=== PATIENT | female | born 1995 | race African-American/Black ===

== ENCOUNTER 2017-08-01 19:50 | Emergency (ER) | payer OTHER ==
[2017-08-01 20:06] VITALS: BP 122/66; PULSE 98; TEMP 98
--- NOTE | 2017-08-01 20:07 | PDOC ---
Rapid Medical Evaluation Time Seen by Provider: 08/01/17 20:02 Medical Evaluation: Allergies Allergy/AdvReac Type Severity Reaction Status Date / Time No Known Allergies Allergy Verified 07/17/15 11:23 08/01/17 20:04 I have performed a brief in-person evaluation of this patient. The patient presents with a chief complaint of: vomiting Pertinent physical exam findings: appears well. no distress I have ordered the following: urine , ua, cbc, cmp The patient will proceed to the ED for further evaluation. Discharge Disposition - Diagnosis Vomiting Qualifiers: Vomiting type: unspecified Vomiting Intractability: unspecified Nausea presence : unspecified Qualified Code(s): R11.10 - Vomiting, unspecified - Referrals - Patient Instructions - Post Discharge Activity
[2017-08-01 20:19] LABS: MCH 30.8 pg (25.7-33.7); MCHC 33.2 g/dl (32.0-36.0); MEAN CELL VOLUME 92.8 fl (80-96); MEAN PLT VOLUME 7.2 fl (7.5-11.1); PLATELET COUNT 250 K/MM3 (134-434); RDW 12.3 % (11.6-15.6); WHITE BLOOD COUNT 13.4 K/mm3 (4.0-10.0)
[2017-08-01 20:25] LABS: URINE APPEARANCE SLCLOUDY; URINE BILIRUBIN NEGATIVE (NEGATIVE); URINE BLOOD NEGATIVE (NEGATIVE); URINE COLOR DKYELLOW; URINE GLUCOSE (UA) NEGATIVE (NEGATIVE); URINE KETONE TRACE (NEGATIVE); URINE NITRITE NEGATIVE (NEGATIVE)
[2017-08-01 20:30] LABS: URINE PROTEIN 1+ (NEGATIVE)
[2017-08-01 20:32] LABS: URINE MUCUS MANY; URINE RBC 5 /hpf (0-3); URINE WBC 2 /hpf (3-5)
--- NOTE | 2017-08-01 20:43 | PDOC ---
Attending Attestation - Resident Resident Name: Elías Arana - ED Attending Attestation I have performed the following: I have examined & evaluated the patient, The case was reviewed & discussed with the resident, I agree w/resident's findings & plan, Exceptions are as noted - HPI HPI: 08/01/17 20:42 N/V/URINARY FREQUENCY ALL DAY - Physicial Exam PE: 08/01/17 20:42 VSS/NAD - Medical Decision Making 08/01/17 20:43 I, Dr. Antoine Obrien, attest that this document has been prepared under my direction and personally reviewed by me in its entirety. I further attest, that it accurately reflects all work, treatment, procedures and medical decision -making performed by me.
[2017-08-01] MEDS ORDERED: SODIUM CHLORIDE 1,000 ML IV STA ×2 (20:55→21:55)
[2017-08-01] MEDS ORDERED: ONDANSETRON 4 MG/2 ML VIAL IVPUSH ONE (20:55)
[2017-08-01] MEDS ORDERED: FAMOTIDINE 20 MG/50 ML IVPB 20 MG/50 ML MG IVPB ONE ×2 (20:55→21:37)
[2017-08-01 20:57] LABS: ALBUMIN 4.2 g/dl (3.4-5.0); ALK PHOS 95 U/L (45-117); ANION GAP 7 (8-16); BILIRUBIN,TOTAL 0.9 mg/dL (0.2-1.0); CALCIUM 8.8 mg/dL (8.5-10.1); CO2 29 mmol/L (21-32); CREATININE 1.1 mg/dL (0.55-1.02); GLUCOSE,RANDOM 101 mg/dL (74-106); SGOT/AST 10 U/L (15-37); SGPT/ALT 20 U/L (12-78); TOT PROT 8.2 g/dl (6.4-8.2)
--- NOTE | 2017-08-01 21:02 | PDOC ---
History of Present Illness - General Chief Complaint: Nausea/Vomiting Stated Complaint: NAUSEA/VOMITING Time Seen by Provider: 08/01/17 20:02 - History of Present Illness Initial Comments: 08/01/17 20:55 22 yo F with no significant pmh who presents with diffuse abdominal pain. Pt. reports diffuse, crampy abdominal pain and multiple episodes of non billiary, non bloody emesis. States that pain is stable and non remitting with absent radiation to flank/back. Endorses decreased appetite with absent postpranidal pain. No diarrhea, or constipation. food exacerbates emesis. Denies N/V, fevers/ chills, chest pain, SOB, lightheadedness, dysuria, hematuria, vaginal bleeding, or pelvic pain. Denies h/o . Alcohol use 4-8 oz per 2 weeks. Denies THC use. Reports h/o similar symptoms in past. H/o L sided ovarian cyst uncomplicated. Past History - Past Medical History Allergies/Adverse Reactions: Allergies Allergy/AdvReac Type Severity Reaction Status Date / Time No Known Allergies Allergy Verified 08/01/17 20:06 Home Medications: Ambulatory Orders NK [No Known Home Medication] 08/01/17 COPD: No Other medical history: denies - Family Disease History Family Disease History: CA: Grandparents - Suicide/Smoking/Psychosocial Hx Smoking History: Never smoked Have you smoked in the past 12 months: No Number of Cigarettes Smoked Daily: 1 Information on smoking cessation initiated: No Hx Alcohol Use: No Drug/Substance Use Hx: No Substance Use Type: None Review of Systems - Review of Systems Comments:: 08/01/17 21:02 GENERAL/CONSTITUTIONAL: No fever or chills. No weakness. HEAD, EYES, EARS, NOSE AND THROAT: No change in vision. No ear pain or discharge. No sore throat.- CARDIOVASCULAR: No chest pain or shortness of breath RESPIRATORY: No cough, wheezing, or hemoptysis. GASTROINTESTINAL: + Nausea, vomiting,and abdominal pain. No diarrhea or constipation. GENITOURINARY: No dysuria, frequency, or change in urination. MUSCULOSKELETAL: No joint or muscle swelling or pain. No neck or back pain. SKIN: No rash NEUROLOGIC: No headache, vertigo, loss of consciousness, or change in strength/ sensation. ENDOCRINE: No increased thirst. No abnormal weight change HEMATOLOGIC/LYMPHATIC: No anemia, easy bleeding, or history of blood clots. ALLERGIC/IMMUNOLOGIC: No hives or skin allergy. *Physical Exam - Vital Signs Last Vital Signs Temp Pulse Resp BP Pulse Ox 98 F 98 H 20 122/66 98 08/01/17 20:04 08/01/17 20:04 08/01/17 20:04 08/01/17 20:04 08/01/17 20:04 - Physical Exam Comments: 08/01/17 21:07 GENERAL: Awake, alert, and fully oriented, in no acute distress HEAD: No signs of trauma, normocephalic, atraumatic EYES: PERRLA, EOMI, sclera anicteric, conjunctiva clear ENT: Auricles normal inspection, hearing grossly normal, nares patent, oropharynx clear without exudates. Dry mucous membrane. NECK: Normal ROM, supple, no lymphadenopathy, JVD, or masses LUNGS: No distress, speaks full sentences, clear to auscultation bilaterally HEART: Regular rate and rhythm, normal S1 and S2, no murmurs, rubs or gallops, peripheral pulses normal and equal bilaterally. ABDOMEN: Soft,diffusely ttp, normoactive bowel sounds. No guarding, no rebound , no rigidity. No masses. Neg CVA ttp. No suprpapubic ttp. No other complaints. EXTREMITIES : Normal inspection, Normal range of motion, no edema. No clubbing or cyanosis. SKIN: Warm, Dry, normal turgor, no rashes or lesions noted. ED Treatment Course - LABORATORY CBC & Chemistry Diagram: 08/01/17 20:10 08/01/17 20:10 - ADDITIONAL ORDERS Additional order review: Laboratory Results 08/01/17 20:10 Urine Color Dkyellow Urine Appearance Slcloudy Urine pH 5.0 Ur Specific Chuckey 1.024 Urine Protein 1+ H Urine Glucose (UA) Negative Urine Ketones Trace H Urine Blood Negative Urine Nitrite Negative Urine Bilirubin Negative Urine Urobilinogen 2.0 H Ur Epithelial Cells Few Urine Mucus Many Urine HCG, Qual Negative 08/01/17 20:10 RBC 4.47 MCV 92.8 MCHC 33.2 RDW 12.3 MPV 7.2 L Neutrophils % No Result Required. Lymphocytes % No Result Required. Medical Decision Making - Medical Decision Making 08/01/17 21:10 22 yo F with no significant pmh who presents with one week of diffuse, crampy abdominal pain and multiple episodes of non billiary, non bloody emesis. States that pain is stable and non remitting with absent radiation to flank/ back. Endorses decreased appetite with absent postpranidal pain. No diarrhea, or constipation. Denies fevers/chills, chest pain, SOB, lightheadedness, dysuria , hematuria, vaginal bleeding, or pelvic pain. Phyiscal exam with diffuse ttp , and hemodynamically stable. Denies h/o . Alcohol use 4-8 oz per 2 weeks. Denies THC use. Reports h/o similar symptoms in past. DDx: Colitis, gastritis ( viral) ED Course: CBC, CMP, Lipase, UA NS 1 L, Pepcid, Zofran 08/01/17 21:12 CT AP ABDOMEN & PELVIS 08/01/17 23:52 CT AP: 2.4 cm R Ovarian cyst with free fluid in rt post adenexa. Previous transvaginal U/S revealed R ovarian cyst of 1.9 cm (2012) 08/01/17 23:59 Patient is stable and ready for discharge with return precautions. *DC/Admit/Observation/Transfer Diagnosis at time of Disposition: Vomiting Qualifiers: Vomiting type: unspecified Vomiting Intractability: unspecified Nausea presence : unspecified Qualified Code(s): R11.10 - Vomiting, unspecified - Discharge Dispostion Disposition: HOME Condition at time of disposition: Stable Admit: No - Referrals Referrals: Samantha Gutierrez MD [Primary Care Provider] - - Patient Instructions Additional Instructions: Please return to the emergency department with any new or worsening symptoms or concerns . Please follow up with primary care within the next 1 week. - Post Discharge Activity - Attestations Physician Attestion: 08/01/17 23:54 I attest to the information provided in this note.
[2017-08-01 21:35] LABS: PLATELET ESTIMATE ADEQUATE; TOTAL CELLS COUNTED 100
[2017-08-01] MEDS ORDERED: ONDANSETRON 4 MG/2 ML VIAL ONE (21:36)
[2017-08-01 22:13] LABS: URINE LEUK ESTERASE Negative (NEGATIVE)
[2017-08-01 22:27] VITALS: BMI 28.8
== END 2017-08-02 00:16 | disposition home or self-care (01) ==
LOC: JER 19:50
PROC: 3E0337Z Introduction of Electrolytic and Water Balance Substance into Peripheral Vein, Percutaneous Approach (ICD-10-PCS; principal; 2017-08-01)
PROC: 3E033GC Introduction of Other Therapeutic Substance into Peripheral Vein, Percutaneous Approach (ICD-10-PCS; 2017-08-01)
PROC: 3E033GC Introduction of Other Therapeutic Substance into Peripheral Vein, Percutaneous Approach (ICD-10-PCS; 2017-08-01)
DX: R11.10 Vomiting, unspecified (principal); N83.201 Unspecified ovarian cyst, right side
CPT/HCPCS: 36415; 74177-TC; 80053; 81003; 81015; 83690; 84703; 85025; 87491; 87591; 99282-25

== ENCOUNTER 2017-09-25 09:00 | Emergency (ER) | payer OTHER ==
[2017-09-25 09:04] VITALS: BP 139/62; PULSE 86; TEMP 98.3; BMI 29.0
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
== END 2017-09-25 12:16 | disposition home or self-care (01) ==
LOC: JERFT 09:00
DX: S49.81XA Other specified injuries of right shoulder and upper arm, initial encounter (principal); V47.5XXA Car driver injured in collision with fixed or stationary object in traffic accident, initial encounter; Y92.414 Local residential or business street as the place of occurrence of the external cause; Y93.89 Activity, other specified; Y99.8 Other external cause status
CPT/HCPCS: 73030-TC-RT; 73060-TC-RT; 73090-TC-RT; 73110-TC-RT; 73130-TC-RT; 84703; 99281-25

== ENCOUNTER 2018-03-06 22:49 | Emergency (ER) | payer OTHER ==
[2018-03-06 22:59] VITALS: BP 118/76; PULSE 57; TEMP 97.9; BMI 28.1
== END 2018-03-07 00:58 | disposition left against medical advice (07) ==
LOC: JER 22:49
DX: Z53.21 Procedure and treatment not carried out due to patient leaving prior to being seen by health care provider (principal)
CPT/HCPCS: 99281-25

== ENCOUNTER 2022-03-28 17:07 | Emergency (ER) | payer OTHER ==
[2022-03-28 17:12] VITALS: BP 123/77; PULSE 95; TEMP 98.3; BMI 30.2
[2022-03-28] MEDS ORDERED: FAMOTIDINE 20 MG TABLET PO ONE (17:56)
[2022-03-28] MEDS ORDERED: predniSONE 20 MG TABLET (UD) PO ONE (17:56)
[2022-03-28] MEDS ORDERED: diphenhydrAMINE HCL 25 MG CAPSULE (FP) PO ONE ×3 (17:56→18:04)
[2022-03-28] MEDS ORDERED: predniSONE 20 MG TABLET (UD) ONE (18:01)
[2022-03-28] MEDS ORDERED: FAMOTIDINE 20 MG TABLET ONE (18:01)
== END 2022-03-28 23:45 | disposition home or self-care (01) ==
LOC: JER 17:07
DX: T78.3XXA Angioneurotic edema, initial encounter (principal)
CPT/HCPCS: 99284-25

== ENCOUNTER 2024-04-15 20:43 | Emergency (ER) | payer OTHER ==
[2024-04-15 20:56] VITALS: BP 111/70; PULSE 70; RESP 18; TEMP 98.3; BMI 30.2
[2024-04-15] MEDS ORDERED: BACITRACIN ZINC 15 GM TUBE TOPICAL OINTMENT ONE (21:40)
[2024-04-15] MEDS: BACITRACIN ZINC 15 GM TUBE TOPICAL OINTMENT TP ONE (21:41)
== END 2024-04-15 21:45 | disposition home or self-care (01) ==
LOC: JERFT 20:43
DX: L03.012 Cellulitis of left finger (principal)
CPT/HCPCS: 99283-25